=== PATIENT | female | born 1950 | race Two or more races ===

== ENCOUNTER 2017-09-18 15:19 | Outpatient (CLI) | payer OTHER | END 2017-09-18 16:03 | disposition home or self-care (01) | LOC: RAD 15:19 | DX: M25.561 Pain in right knee (principal); M25.562 Pain in left knee ==

== ENCOUNTER 2018-09-04 07:55 | Outpatient (CLI) | payer OTHER | END 2018-09-04 08:05 | disposition home or self-care (01) | LOC: SONOGRAMA 07:55 | DX: E04.1 Nontoxic single thyroid nodule (principal) ==